=== PATIENT | female | born 2000 ===

== ENCOUNTER 2024-01-17 12:42 | Outpatient (AMB) | payer OTHER, SELFPAY ==
--- NOTE | 2024-01-17 12:53 | MHC.OFFWIV ---
Intake Vital Signs 01/17/24 12:55 Height 5 ft 2 in Weight 112 lb 7 oz BMI 20.6 BP 127/81 Blood Pressure Location Lt brachial Position Sitting Pulse 81 Pulse Source Pulse Oximeter Pulse Oximetry (%) 98 Oxygen Delivery Method Room Air Intake Visit Reasons: Can't hear out of left ear Intake Note: Patient is here with trouble hearing out of left ear for about 2 weeks. Happens to her often. Patient Tobacco Use Status: Never used Tobacco Is last menstrual period known: Yes Last menstrual period: 12/23/23 Allergies No Known Allergies Allergy (Verified 01/17/24 13:00) Do you need a note to return to daycare/school/sports/work: No HPI HPI Comments History of Present Illness Details Here today w/ c/o clogged sensation of L ear started about 2 weeks ago Denies any cold like sx Denies fever, chills, pain, drainage Right ear unaffected. PFSH Social History Patient Tobacco Use Status: Never used Tobacco Female Reproductive History Menstrual Date of last menstrual period: 12/23/23 Review of Systems Const All systems reviewed & are unremarkable except as noted in HPI and below Physical Exam Vital Signs: Last Vital Signs Pulse 81 01/17/24 12:55 BP 127/81 01/17/24 12:55 Pulse Ox 98 01/17/24 12:55 Oxygen Delivery Method Room Air 01/17/24 12:55 BMI result Body Mass Index 20.6 Const Other: Cerumen impaction bilat. Successfully cleared with lavage. Lavage yielded large amount of cerumen. Patient tolerated well. Status post lavage TM intact and clear. EAC clear. Office Procedures Cerumen Removal From which ear canal was the cerumen removed: bilateral Removal: irrigation Notes: patient tolerated procedure well, no complications and ear canal clear [id number] Irrigation/Lavage Assessment & Plan Assessment & Plan (1) Impacted cerumen, bilateral: Code(s): H61.23 - Impacted cerumen, bilateral Plan: This note is constructed using voice recognition software. While every effort has been made to ensure accuracy in client experience specialist, still errors may have been included Sometimes, these errors may affect the content or meaning of the given sentence . Total time spent caring for the patient today was 30 minutes. This includes time spent before the visit reviewing the chart, time spent during the visit, and time spent after the visit on documentation Coding Level of Care Code Est Pt Level 4 (27291) Diagnoses Impacted cerumen, bilateral H61.23 CPT Codes Office Procedure - CPT: 52164-Dlo Irrigation/Lavage ([id number])
[2024-01-17 12:55] VITALS: BP 127/81; PULSE 81; O2SAT 98; BMI 20.6
== END 2024-01-17 13:45 | disposition home or self-care (01) ==
PROVIDERS: Visit Provider Nurse Practitioner Family
DX: H61.23 Impacted cerumen, bilateral (principal)
CPT/HCPCS: 69209; 99214